=== PATIENT | female | born 1965 | race Caucasian/White ===

== ENCOUNTER 2017-01-15 06:49 | Emergency (ER) | payer BC ==
[~2017-01-15] VITALS: Ht 154.9 cm; Wt 59.0 kg
--- NOTE | ~2017-01-15 | CR282 ---
[facility] A Service of [facility] & [facility] RADIOLOGY TEXT RESULTS PATIENT: GUILLERMO CELIS LOCATION: [facility] : 65 UNIT #: [id number] AGE: [address]: John Reese DO SEX: F ORDER DR: [id number] [facility] [address] [place], [place] [address] [id number] E MR#: [id number] Acc #: [id number] NAME: GUILLERMO CELIS. : 1965 SEX: F STUDY DATE/TIME: 01/15/2017 7:31 UNIT: [facility] ROOM: STUDY DESCRIPTION: CR Wrist Min 3 View Rt Attending Physician: John Reese D.O. Ordering Physician: John Reese D.O. Primary Care Physician: Marion Sullivan M.D. MEDICAL IMAGING REPORT This report is preliminary unless electronic signature is present EXAM Right wrist series, 01/15/2017. HISTORY Fell, bracing fall with right hand. Pain in right hand and right wrist. FINDINGS AP, lateral and oblique radiographs of the right wrist are presented. There is a comminuted impacted intraarticular fracture involving the distal radius. The dominant transverse fracture plane is approximately 7 mm from the articular surface. Dominant distal fracture fragments are slightly impacted and mildly angled posteriorly. There is a longitudinal fracture plane along the ulnar aspect of the dominant distal fragment. This longitudinal fracture plane does extend into the radiocarpal joint space. On the oblique view, the ulnar aspect fracture fragment of the distal radius is displaced in ulnar direction by about 2-3 mm. The dominant distal radial fragments on the lateral view show anterior and posterior displacement on the order of 2-4 mm. There is a mildly comminuted fracture of the ulnar styloid process. Generalized narrowing of the radiocarpal joint space. Carpal bones themselves intact. Circumferential soft tissue swelling around wrist most pronounced anteriorly and posteriorly without soft tissue defect, subcutaneous air or radiodense foreign body. Dictated by... Levy Haro M.D. THIS IS AN ELECTRONICALLY VERIFIED REPORT Levy Haro M.D. at 01/17/2017 9:44 PM VALORIE/amairani [facility] A Service of [facility] & [facility] RADIOLOGY TEXT RESULTS PATIENT: GUILLERMO CELIS [facility] #: [id number] : 65 UNIT #: [id number] AGE: [address]: John Reese DO SEX: F ORDER DR: TD: 01/15/2017 11:32 JOB #: [id number] MEDICAL IMAGING REPORT Page 1 of 1 COPY
--- NOTE | ~2017-01-15 | CR142 ---
[facility] A Service of [facility] & [facility] RADIOLOGY TEXT RESULTS PATIENT: GUILLERMO CELIS LOCATION: [facility] : 65 UNIT #: [id number] AGE: [address]: John Reese DO SEX: F ORDER DR: [id number] [facility] [address] [place], [place] [address] [id number] E MR#: [id number] Acc #: [id number] NAME: GUILLERMO CELIS. : 1965 SEX: F STUDY DATE/TIME: 01/15/2017 7:32 UNIT: [facility] ROOM: STUDY DESCRIPTION: CR Hand Min 3 Views Rt Attending Physician: John Reese D.O. Ordering Physician: John Reese D.O. Primary Care Physician: Marion Sullivan M.D. MEDICAL IMAGING REPORT This report is preliminary unless electronic signature is present EXAM Right hand series 01/15/2017 HISTORY Trauma 3 days. Patient fell, bracing fall with right hand. FINDINGS AP, lateral, and oblique radiographs of the right hand are presented. Please see today's associated right wrist series for full discussion of comminuted intraarticular fracture of distal radius and comminuted fracture of ulnar styloid process. The remainder of visualized carpal bones are intact. The bones of the hand are intact. Joint spaces in the hand are intact. There is no soft tissue defect, subcutaneous air, or radiodense foreign body. There is soft tissue swelling circumferentially around the wrist most pronounced anteriorly and posteriorly and there is soft tissue swelling dorsal aspect of the hand. There is a well-corticated approximately 2 mm calcification along the palmar aspect of the head of the middle phalanx of fourth digit. Favored to be chronic soft tissue calcification versus small sesamoid bone versus sequelae of remote trauma. I do not believe that this represents an acute fracture fragment. Dictated by... Levy Haro M.D. THIS IS AN ELECTRONICALLY VERIFIED REPORT Levy Haro M.D. at 01/17/2017 9:44 PM VALORIE/maciel TD: 01/15/2017 11:55 JOB #: [id number] [facility] A Service of [facility] & [facility] RADIOLOGY TEXT RESULTS PATIENT: GUILLERMO CELIS LOCATION: [facility] #: [id number] : 65 UNIT #: [id number] AGE: [address]: John Reese DO SEX: F ORDER DR: MEDICAL IMAGING REPORT Page 1 of 1 COPY
== END 2017-01-15 10:43 | disposition home or self-care (01) ==
LOC: CED 06:49
DX: S52.571A Other intraarticular fracture of lower end of right radius, initial encounter for closed fracture (principal); W18.30XA Fall on same level, unspecified, initial encounter; Y92.009 Unspecified place in unspecified non-institutional (private) residence as the place of occurrence of the external cause
CPT/HCPCS: 29125; 73110; 73130; 99283